=== PATIENT | female | born 1985 | race African-American/Black ===

== ENCOUNTER 2018-07-21 19:33 | Day surgery (SDC) | payer SELFPAY ==
[2018-07-21 20:15] VITALS: BP 137/64; TEMP 98.1; BMI 43.7
[2018-07-21 21:21] LABS: Bilirubin Negative (Negative); Blood, Urine Negative (Negative); Clarity CLEAR (Clear); Glucose, Urine (Dipstick) Negative (Negative); Leukocyte Negative (Negative); Nitrite Negative (Negative); Protein, Urine (Dipstick) Trace mg/dL (Neg-Trace); Specific Gravity, Urine 1.019 (1.002-1.036); pH, Urine 6.5 (5.0-9.0)
--- NOTE | 2018-07-21 22:09 | PDOC.FPROB ---
FMR OB H&P: HPI - History of Present Illness Chief Complaint: Back pain History of Present Illness: This is a 33 yo who presents to L&D with a cc of back pain and cramping she states that the pain has been going on all day and has worsened this evening. She reports ramona vicente contractions in the last 2 weeks. She denies any vaginal bleeding or LOF. She does think she has had an increase in vaginal discharge but denies vaginal discomfort, itching, or dysuria. She reports nausea with one episode of emesis [employer] but states that is normal for her. Pt. had a previous positive chlamydia test and reports she was unaware of these results. She reports being frustrated by this. FMR OB H&P: Current - Care : 5 Para: 4 Gestational age: 34 - OB Labs Blood type: B RH: positive Antibody Screen: negative HIV: negative RPR: negative HepBsAg: negative Rubella: immune Chlamydia: positive (04/10/18 with no documentation of positive test or treatment ) H&H: 11.8/36.3 05/15/18 - Anatomy Survey Anatomy survey: 16.4 weeks, size less than dates FMR OB H&P: History - OB History OB History: 4 previous term vaginal deliveries - Surgical History Sx History: none - Social History Social History: Denies D/A/T - Family History Family History: Noncontributory FMR OB H&P: Medications - Current Home Medications: Medication Instructions Recorded Confirmed Type 21/Iron Fu/Folic Acid 1 tablet PO DAILY 07/21/18 07/21/18 History [ Complete Caplet] Ranitidine HCl 150 mg PO DAILY 07/21/18 07/21/18 History metroNIDAZOLE [Flagyl] 500 mg PO BID #14 tab 07/21/18 Rx Allergies/Adverse Reactions: Allergies Allergy/AdvReac Type Severity Reaction Status Date / Time No Known Allergies Allergy Verified 07/21/18 20:03 FMR OB H&P: ROS - Review of Systems General: denies: fever/chills, weight/appetite/sleep changes Eyes: denies: eye pain, vision changes ENT: denies: nasal congestion, rhinorrhea Cardiovascular: denies: chest pain, palpitation Respiratory: denies: cough, congestion, shortness of breath Gastrointestinal: reports: abdominal pain, nausea, vomiting. denies: bright red blood Genitourinary (Female): denies: incontinence, dysuria, hematuria, vaginal discharge, vaginal pain, vaginal bleeding Musculoskeletal: reports: pain (back) Neurologic: denies: numbness, syncope, seizures Integumentary: denies: itching, rash Psychological: denies: depression, anxiety FMR OB H&P: Vital Signs - Maternal Vital signs: Vital Signs - First Documented Temp Pulse Resp BP 98.1 F 101 H 18 137/64 07/21/18 20:01 07/21/18 20:01 07/21/18 20:01 07/21/18 20:01 - Heart Tones Baseline: 140 (Nonreactive NST) Variability: moderate Acceleration: absent Deceleration: absent FMR OB H&P: Physical Exam - Physical Exam General: NAD, awake, alert and oriented HEENT: normocephalic and atraumatic, PERRLA, EOMI, MMM, conjunctiva clear Chest: non-tender to palpation, no lesions Heart: RRR, normal S1/S2 General: CTAB, no respiratory distress, good air movement, no wheezing Abdomen: soft, gravid, non-tender, bowel sound present Musculoskeletal: pulses present, FROM in all four extremities Neurological: cranial nerves II through XII intact, no focal deficit Skin: no rash, good tugor Psychiatric: intact recent and remote memory, good judgement and insight - Pelvic Exam Vulva: no masses, no lesions, no discharge Cervix: no masses, no lesions, no blood SVE: White discharge, cervix normal in appearance, nonfriable, and closed FMR OB H&P: Results - Labs Lab results: Laboratory Results - last 24 hr 07/21/18 21:09 Urine Color YELLOW Urine Clarity CLEAR Urine pH 6.5 Ur Specific [place] 1.019 Urine Protein Trace Urine Glucose (UA) Negative Urine Ketones Trace H Urine Blood Negative Urine Nitrite Negative Urine Bilirubin Negative Urine Urobilinogen 1.0 Ur Leukocyte Esterase Negative FMR OB H&P: A/P - Problem List (1) Third trimester Current Visit: Yes Status: Acute Code(s): Z34.93 - ENCNTR FOR SUPRVSN OF NORMAL PREG, UNSP, THIRD TRIMESTER Assessment and Plan: This is a at 32 wk by 16.4wk Third trimester -We are obtaining UA, VP3, and GC/Chlamydia and we will adjust our treatment based on these findings. Due to the GC/C test being a send out and her previous positive test, we with treat pt. for chlamydia with azithromycin while she is here. VP3 was positive for BV. We will be treating her with flagyl 500mg BID for 7 days. I discussed this plan with her and let her know we would call her regarding the test results. Pt. was discharged and all questions were addressed at the time of discharge. Discussion: Date/Time: 07/21/18 4373 This H&P was discussed with [] and [] who agree with the above documentation and plan.
[2018-07-21] MEDS ORDERED: Azithromycin 250 MG TAB PO SCH (22:15)
[2018-07-23 19:44] LABS: Chlamydia by PCR DETECTED (NotDetected); GC by PCR Not Detected (NotDetected)
== END 2018-07-21 23:00 | disposition home or self-care (01) ==
LOC: L&D/OP 19:33
PROVIDERS: ATTEND Family Medicine
DX: O99.89 Other specified diseases and conditions complicating pregnancy, childbirth and the puerperium (principal); M54.9 Dorsalgia, unspecified; N89.8 Other specified noninflammatory disorders of vagina; O98.313 Other infections with a predominantly sexual mode of transmission complicating pregnancy, third trimester; A56.02 Chlamydial vulvovaginitis; Z3A.32 32 weeks gestation of pregnancy; Z79.899 Other long term (current) drug therapy
CPT/HCPCS: 51701; 81003; 87480; 87491; 87510; 87591; 87660; 99285

== ENCOUNTER 2018-08-28 02:25 | Day surgery (SDC) | payer SELFPAY ==
[2018-08-28 03:01] VITALS: BMI 43.6
--- NOTE | 2018-08-28 04:15 | PDOC.LDHP ---
Addendum entered and electronically signed by Reginaldo Sandoval DO 08/28/18 06:16: after further review of FHT, will obtain BPP. DC with normal findings. Original Note: Labor and Delivery H&P Chief complaint: contractions HPI: Ms. Robin presents tonight with contractions She reports contractions approx 3-5 mins apart since 2300 on 08/27. She denies LOF, VB, change in VD, headache, SOB, or visual changes. +FM Current gestational age (weeks): 37 (.5) Due date: 09/13/18 Dating criteria: first trimester ultrasound Grav: 5 Para: 4 OB History Details: at term, no complications. elevated pressures in clinic w/o dx of PIH, morbid obesity Current complications: none Abnormal US findings: Yes (size<dates) Past Medical History: anxiety, not taking medications for the past year Current medications: pre-vero vitamins Previous surgical history: none Social history: none - Physical Exam Vital signs reviewed and normal: yes General: NAD Heart: RRR Lungs: nonlabored breathing Abdomen: NTTP Extremeties: trace edema FHT: category 1 (baseline 130), variability present [place] contractions every: 5-7 mins - Vaginal Exam cm dilated: 1 Effacement: 0% Station: -2 - OB Labs Blood type: B RH: positive Antibody Screen: negative HIV: negative RPR: negative HEPSAg: negative 1 hour GCT: negative GBS: negative Urine drug screen: not done Rubella: immune Additional Labs: chlamydia + and treated, HbA1c 5.6 - Assessment labor r/o, possible ramona-vicente - Plan -: - encourage ambulation, PO intake - no cervical change after 2 hours, unlikely onset of labor - DC home with labor precautions - follow up at scheduled [facility] today. <Reginaldo Sandoval - Last Filed: 08/28/18 06:10> <Levon Cronin - Last Filed: 08/29/18 09:18> Allergies/Adverse Reactions: Allergies Allergy/AdvReac Type Severity Reaction Status Date / Time No Known Allergies Allergy Verified 08/28/18 03:02 Attending Addendum - Attending Addendum Date/Time: 08/29/18 0917 I personally evaluated the patient and discussed the management with Dr. Sandoval. I agree with the History, Examination, Assessment and Plan documented above. See additional note by me. <Levon Cronin - Last Filed: 08/29/18 09:18>
--- NOTE | 2018-08-28 07:08 | PDOC.EVN ---
Event Note - Event Note Event Note: FHTs with late appearing decel seen earlier while on monitor. No other abnormalities seen. BPP ordered; returns 8 out of 8 with JOSE of 10+. Plan: DC home with labor precautions.
--- NOTE | 2018-08-28 08:23 | ULT ---
ULTRASOUND BIOPHYSICAL PROFILE: HISTORY: A 33-year-old female with a history of 37 weeks with variable deceleration. FINDINGS: Single viable intrauterine fetus in cephalic presentation. heart rate is 126 b.p.m. Posterior fundal placenta. Amniotic fluid index 10.7 cm. The patient was evaluated over 30 minutes for movement, breathing, and tone. biophysical profile 8/8. IMPRESSION: Normal biophysical profile score 8/8. POS: MACIEL
== END 2018-08-28 07:16 | disposition home or self-care (01) ==
LOC: L&D/OP 02:25
PROVIDERS: ATTEND Obstetrics & Gynecology
DX: O47.03 False labor before 37 completed weeks of gestation, third trimester (principal); O99.343 Other mental disorders complicating pregnancy, third trimester; F41.9 Anxiety disorder, unspecified; O99.213 Obesity complicating pregnancy, third trimester; E66.01 Morbid (severe) obesity due to excess calories; Z3A.37 37 weeks gestation of pregnancy; Z79.899 Other long term (current) drug therapy
CPT/HCPCS: 76819; 99283

== ENCOUNTER 2018-08-30 18:15 | Inpatient (IN) | payer OTHER, SELFPAY ==
[2018-08-30] MEDS ORDERED: HYDROcodone/Acetaminophen 5/325 mg Tablet PO PRN ×2 (18:37)
[2018-08-30] MEDS ORDERED: Methylergonovine 0.2 MG/ML VIAL IM PRN (18:37)
[2018-08-30] MEDS ORDERED: Promethazine HCl 25 MG/ML VIAL IM PRN ×2 (18:37→19:39)
[2018-08-30] MEDS ORDERED: Acetaminophen 500 MG TAB PO PRN (18:37)
[2018-08-30] MEDS ORDERED: Diphenoxylate HCl/Atropine Tablet PO PRN ×2 (18:37)
[2018-08-30] MEDS ORDERED: Ondansetron PF 4 MG/2 ML Vial IVP PRN ×3 (18:37→21:15)
[2018-08-30] MEDS ORDERED: Ibuprofen 800 MG TAB PO PRN (18:37)
[2018-08-30] MEDS ORDERED: NS / Oxytocin 40 units/1000ml 1,000 ML IV PRN (18:37)
[2018-08-30] MEDS ORDERED: Carboprost 250 MCG/ML AMP IM PRN (18:37)
[2018-08-30] MEDS ORDERED: Lidocaine 1% (PF) 30 ML VIAL SC PRN (18:37)
[2018-08-30] MEDS ORDERED: Butorphanol Tartrate 1 MG/ML VIAL SLOW IVP PRN (18:37)
[2018-08-30] MEDS ORDERED: Misoprostol 200 MCG TAB PR PRN (18:37)
[2018-08-30] MEDS ORDERED: Ondansetron ODT 4 MG TAB SL PRN (18:44)
[2018-08-30] MEDS ORDERED: Lactated Ringer's 1,000 ML IV SCH (18:45)
[2018-08-30 18:53] VITALS: BMI 43.4
[2018-08-30 19:08] LABS: Hemoglobin 12.2 g/dL (12.0-16.0); Mean Corpuscular HGB CONC 33.6 g/dL (32.0-36.0); Mean Corpuscular Hemoglobin 27.5 pg (27.0-31.0); Mean Corpuscular Volume 81.8 fL (78.0-98.0); Mean Platelet Volume 7.4 fL (7.4-10.4); Platelet Count 335 thou/uL (130-400); RBC Distribution Width 13.4 % (11.5-14.5); Red Blood Cell (RBC) Count 4.42 mill/uL (4.20-5.40); White Blood Cell (WBC) Count 12.1 thou/uL (4.8-10.8)
--- NOTE | 2018-08-30 19:08 | PDOC.FPROB ---
FMR OB H&P: HPI - History of Present Illness Chief Complaint: Contractions Indentification: 33 year old History of Present Illness: 33 year old at 38 wks by 16.4 wk [place] with DARRICK of 09/13/2018 presents with contractions. She was seen earlier today at [facility] because she went to the restroom this morning and passed a large clot. Patient states that she bled for several hours after she passed the clot. She was also feeling abdominal cramping during that time. At [facility] they checked her cervix and she was dilated 1 cm. They told her to come over to L&D and [facility] since her primary provider is located here. She opted to go home instead, and now she has returned with frequent contractions, nausea, and vomiting. Patient denies vaginal discharge, LoF. Primary Care Physician: Phuong - [facility] FMR OB H&P: Current - Care : 5 Para: 4004 Gestational age: 38.0 wks Due date: 09/13/2018 Dating Criteria: 16.4 wk sono - OB Labs Blood type: B RH: positive Antibody Screen: negative HIV: negative RPR: negative HepBsAg: negative Rubella: immune Gonorrhea: negative Chlamydia: positive (w/ negative KRZYSZTOF) Pap Smear: wnl 1 hour gtt: 132 A1c: 5.4% GBS: negative FMR OB H&P: History - Past Medical History PMH: Morbid obesity - OB History OB History: Morbid obesity Chlamydia in s/p neg KRZYSZTOF - LINUX ARCHITECT History LINUX ARCHITECT History: Hx of chlamydia, treated - Surgical History Sx History: None - Social History Social History: Denies alcohol, tobacco, or drug use - Family History Family History: Insignificant FMR OB H&P: Medications - Current Home Medications: Medication Instructions Recorded Confirmed Type 21/Iron Fu/Folic Acid 1 tablet PO DAILY 08/28/18 08/30/18 History [ Complete Caplet] Promethazine [Phenergan] 25 mg PO Q6HR PRN 08/30/18 08/30/18 History Allergies/Adverse Reactions: Allergies Allergy/AdvReac Type Severity Reaction Status Date / Time No Known Allergies Allergy Verified 08/28/18 03:02 FMR OB H&P: ROS - Review of Systems General: denies: fever/chills, weight/appetite/sleep changes Eyes: denies: vision changes, double vision ENT: denies: nasal congestion, rhinorrhea Cardiovascular: denies: chest pain, edema Respiratory: denies: cough, congestion Gastrointestinal: reports: abdominal pain, nausea, vomiting. denies: diarrhea Genitourinary (Female): reports: vaginal bleeding, contractions. denies: dysuria Musculoskeletal: denies: pain, stiffness Neurologic: denies: syncope, seizures Integumentary: denies: itching, lesions Hematologic/Lymphatic: denies: prolonged or excessive bleeding Psychological: reports: anxiety. denies: depression FMR OB H&P: Vital Signs - Maternal Vital signs: Vital Signs - First Documented Temp Pulse Resp BP 98.6 F 96 18 134/76 08/30/18 18:36 08/30/18 18:36 08/30/18 18:36 08/30/18 18:36 - Heart Tones Baseline: 140 Variability: moderate Acceleration: present Deceleration: variable Category: category 2 [place] contractions every: q4-5 min FMR OB H&P: Physical Exam - Physical Exam General: awake, alert and oriented Deviation from normal: Mild distress, vomiting HEENT: MMM, grossly normal vision, grossly normal hearing Heart: RRR, pulses present General: no respiratory distress, no wheezing Abdomen: soft, gravid, non-tender Musculoskeletal: pulses present Neurological: no tremor, no focal deficit Skin: no rash, capillary refill <2 seconds Lymphatic: no unusual bruising or bleeding, no purpura Psychiatric: intact recent and remote memory, good judgement and insight, normal mood and affect - Pelvic Exam Vulva: normal hair distribution, no masses, no discharge Deviation from normal: blood at introitus SVE: 4/100/-2 at 19:15 Presentation: Cephalic FMR OB H&P: A/P - Problem List (1) Term Current Visit: Yes Status: Acute Code(s): Z34.80 - ENCOUNTER FOR SUPRVSN OF NORMAL , UNSP TRIMESTER (2) History of chlamydia Current Visit: Yes Status: Acute Code(s): Z86.19 - PERSONAL HISTORY OF OTHER INFECTIOUS AND PARASITIC DISEASES (3) Morbid obesity Current Visit: Yes Status: Acute Code(s): E66.01 - MORBID (SEVERE) OBESITY DUE TO EXCESS CALORIES Disposition: 33 year old at 38 wks presents with contractions 1. Term - 38 weeks - In labor: /-2 which is change from earlier today when she was dilated only 1 cm - Admit to L&D for expectant management - Anti-emetics PRN for N/V 2. Labor - Expectant management as above - Will plan to AROM after patient gets epidural - Augmentation if necessary 3. Chlamydia in s/p negative KRZYSZTOF 4. Morbid obesity - Patient was following with M Discussion: Date/Time: 08/30/181903 This H&P was discussed with Dr. Griffiths who agrees with the above documentation and plan. Signature: Yoselin Baca, DO PGY-2
[2018-08-30] MEDS ORDERED: Fentanyl 4 mcg/Bup 0.1% Cadd 100 ML ONE (19:09)
[2018-08-30] MEDS ORDERED: Lidocaine 1.5%/Epinephrine 1:200,000 5 ML AMPUL IJ ONE (19:20)
[2018-08-30] MEDS ORDERED: ePHEDrine/0.9% NaCl/PF SYRINGE 50 mg/10 ml SLOW IVP PRN (19:39)
[2018-08-30] MEDS ORDERED: Naloxone HCl 0.4 mg/ml Vial IVP PRN ×2 (19:39)
[2018-08-30] MEDS ORDERED: Eucerin (Mineral Oil/Petrolatum,White) 30 gm Jar TOP PRN (19:39)
[2018-08-30] MEDS ORDERED: Acetaminophen 325 MG TAB PO PRN (19:39)
[2018-08-30] MEDS ORDERED: diphenhydrAMINE 50 MG/ML VIAL IVP PRN (19:39)
[2018-08-30] MEDS ORDERED: Lactated Ringer's 500 ML IV PRN (19:39)
[2018-08-30] MEDS ORDERED: Fentanyl 4 mcg/Bupivacaine 0.1% Cassette 100 ML EPIDURAL SCH (19:45)
[2018-08-30] MEDS ORDERED: Communication Order-Pharmacy FS SCH (19:45)
--- NOTE | 2018-08-30 19:55 | PDOC.LDPN ---
Labor & Delivery Progress Note - Subjective Subjective: comfortable - Objective Vital signs reviewed and normal: yes General: NAD, breathing through contractions Uterine fundus: non tender SVE: 19:40 Dilation: 5 Effacement: 100% Station: -1 FHT: category 1, variability present [place] contractions every: q2-3 min AROM: clear fluid - Assessment (1) Term Code(s): Z34.80 - ENCOUNTER FOR SUPRVSN OF NORMAL , UNSP TRIMESTER Current Visit: Yes Status: Acute (2) History of chlamydia Code(s): Z86.19 - PERSONAL HISTORY OF OTHER INFECTIOUS AND PARASITIC DISEASES Current Visit: Yes Status: Acute (3) Morbid obesity Code(s): E66.01 - MORBID (SEVERE) OBESITY DUE TO EXCESS CALORIES Current Visit : Yes Status: Acute Plan: continue plan of care
[2018-08-30 20:16] LABS: Syphilis Antibody Nonreactive (Nonreactive); Syphilis Antibody Index 0.03 S/CO (<1.00 Non-Reactive)
[2018-08-30 20:17] LABS: HBSAg Index 0.18 S/CO (0-0.99); Hep B Surf Ag Non-Reactive S/CO (NonReactive)
--- NOTE | 2018-08-30 20:29 | PDOC.OPDEL ---
OB Operative/Delivery Note Delivery Dr/Surgeon: Aye Baca Pre-Delivery Diagnosis: active labor Procedure/Post Delivery Dx: spontaneous vaginal delivery Weeks gestation: 38 Anesthesia: epidural - Findings A Sex: female - 1 min: 9 - 5 min: 9 - Additional Findings/Plan Placenta delivered: spontaneous Repaired Obstetrical Laceration: none Estimated blood loss: 100 mL Compilations/Other Findings: Delivering Physician: Phuong Attending: Aye Procedure: Spontaneous Vaginal Delivery Anesthesia: Epidural EBL: 100 mL Pre-op Diagnosis: 1. Term intrauterine in labor 2. Hx chlamydia in , s/p neg KRZYSZTOF 3. Morbid obesity Post-op Diagnosis: 1. Term intrauterine , delivered 2. same as above Indications: A 33 y/o female presents in active labor Delivery Note: This is 33yo F @ 38 wks who delivered a viable F at 20:05 on 08/30/2018. Following an uneventful antepartum course, a vigorous F was delivered over an intact perineum in the occipitoanterior position. Anterior shoulder and then remainder of the body delivered. No nuchal cord. The head was held down and mouth and nares were bulb suctioned. Cord clamped and cut and cord blood collected. Placenta delivered intact with a 3 vessel cord noted. Fundal massage was performed and the fundus was firm. The cervix and vagina were inspected and found to be free of lacerations. went to nursery in good condition for routine care. Apgars were 9/9 at 1 & 5 minutes, respectively. Patient tolerated delivery well and went to after routine recovery/care. Post delivery plan: routine recovery <Yoselin Baca - Last Filed: 08/30/18 20:35> Attending Addendum - Attending Addendum Date/Time: 08/31/18 0631 I was present and scrubbed for the entire delivery. <Dariela Griffiths - Last Filed: 08/31/18 06:32>
[2018-08-30] MEDS ORDERED: NS / Oxytocin 40 units/1000ml 1,000 ML ONE (21:03)
[2018-08-30] MEDS ORDERED: Bisacodyl 10 MG SUPP PR PRN (21:15)
[2018-08-30] MEDS ORDERED: diphenhydrAMINE 25 MG CAP PO PRN (21:15)
[2018-08-30] MEDS ORDERED: Adacel (T-DAP) 0.5 ML SYRINGE IM ONE (21:15)
[2018-08-30] MEDS ORDERED: Milk Of Magnesia 30 ML UDCUP PO PRN (21:15)
[2018-08-30] MEDS ORDERED: NS / Oxytocin 40 units/1000ml 1,000 ML IV SCH (21:15)
[2018-08-30] MEDS ORDERED: Lanolin Ointment 7 GM TUBE TOP PRN (21:15)
[2018-08-31] MEDS: Ibuprofen 800 MG TAB PO SCH ×3 (00:10→18:17)
[2018-08-31] MEDS: Calcium Carbonate 500 MG ChewTAB PO PRN ×4 (00:11→18:17)
[2018-08-31] MEDS ORDERED: Bupivacaine HCl 0.25%/Epi 0.0005/PF 10 ML VIAL FS ONE (01:11)
[2018-08-31] MEDS: HYDROcodone/Acetaminophen 5/325 mg Tablet PO PRN ×2 (05:19→17:24)
--- NOTE | 2018-08-31 09:18 | PDOC.PP ---
Post Progress Note Post Day #: 1 Subjective: Patient doing well. No significant overnight events. Patient ambulating and tolerating PO. Denies N/V this AM. PO intake tolerated: yes Flatus: yes Ambulation: yes Vital Signs (12 hours) Temp Pulse Resp BP Pulse Ox 08/31/18 07:58 98.2 F 53 L 20 109/55 L 98 08/31/18 04:40 52 L 18 132/69 99 08/31/18 00:20 68 20 127/72 97 08/30/18 23:30 98.6 F 80 20 114/59 L 96 08/30/18 22:15 98.7 F 80 20 120/57 L 96 Weight Weight 118.388 kg - Physical Examination General: NAD Cardiovascular: no m/r/g, RRR Respiratory: clear to auscultation bilaterally, non-labored breathing Abdominal: + bowel sounds, lochia (similar to that of a period), no distention Fundus firm & at: below umbilicus Neurological: no gross focal deficits Psychiatric: A&Ox3, normal affect Result Diagrams: 08/30/18 19:01 Additional Labs: Post Labs Blood Type B POSITIVE 08/30/18 19:15 Hep Bs Antigen Non-Reactive S/CO (NonReactive) 08/30/18 19:15 (1) (spontaneous vaginal delivery) Code(s): O80 - ENCOUNTER FOR FULL-TERM UNCOMPLICATED DELIVERY Status: Acute (2) History of chlamydia Code(s): Z86.19 - PERSONAL HISTORY OF OTHER INFECTIOUS AND PARASITIC DISEASES Status: Acute (3) Morbid obesity Code(s): E66.01 - MORBID (SEVERE) OBESITY DUE TO EXCESS CALORIES Status: Acute (4) Term delivered Code(s): O80 - ENCOUNTER FOR FULL-TERM UNCOMPLICATED DELIVERY Status: Acute - Assessment/Plan 33 year old at 38 wks delivered term female at 20:05 on 08/30 1. Term , delivered - - Routine PP care - Contraception desired: IUD - 2. 3. Morbid obesity - Encourage ambulation 4. Hx of chlamydia in s/p neg KRZYSZTOF Dispo: Stable. Anticipate d/c home tomorrow. Addendum - Attending - Attending Attestation Date/Time: 09/02/18 1744 I personally evaluated the patient and discussed the management with Dr. Baca. I agree with the History, Examination, Assessment and Plan documented above.
[2018-08-31] MEDS: Prenatal Vitamin 1 TAB PO SCH (10:33)
[2018-08-31] MEDS: Ferrous Sulfate 325 MG TAB PO SCH ×2 (10:33→18:14)
[2018-08-31] MEDS: Docusate Calcium (SURFAK) 240 MG CAP PO SCH (10:33)
[2018-08-31 20:55] VITALS: TEMP 97.8
[2018-09-01] MEDS: Ibuprofen 800 MG TAB PO SCH ×2 (02:01→09:37)
[2018-09-01] MEDS: Docusate Calcium (SURFAK) 240 MG CAP PO SCH ×2 (02:02→09:38)
[2018-09-01] MEDS: HYDROcodone/Acetaminophen 5/325 mg Tablet PO PRN (06:57)
[2018-09-01 08:06] VITALS: BP 122/59
[2018-09-01] MEDS: Ferrous Sulfate 325 MG TAB PO SCH (09:31)
[2018-09-01] MEDS: Prenatal Vitamin 1 TAB PO SCH (09:38)
== END 2018-09-01 14:05 | disposition home or self-care (01) | DRG 806 ==
LOC: L&D/OP 18:15 → L&D 18:51 → 3SW 22:18
PROVIDERS: ADMIT Obstetrics & Gynecology; ATTEND Obstetrics & Gynecology
PROC: 10E0XZZ Delivery of Products of Conception, External Approach (ICD-10-PCS; principal; 2018-08-30)
PROC: 10907ZC Drainage of Amniotic Fluid, Therapeutic from Products of Conception, Via Natural or Artificial Opening (ICD-10-PCS; 2018-08-30)
DX: O99.214 Obesity complicating childbirth (principal); Z68.41 Body mass index [BMI] 40.0-44.9, adult; Z37.0 Single live birth; E66.01 Morbid (severe) obesity due to excess calories; Z3A.38 38 weeks gestation of pregnancy; Z86.19 Personal history of other infectious and parasitic diseases; O62.3 Precipitate labor
CPT/HCPCS: 36415; 85027; 86780; 86850; 86900; 86901; 87340; 99285; J2001; J3490

== ENCOUNTER 2019-12-07 09:50 | Emergency (ER) | payer OTHER | END 2019-12-07 10:18 | disposition home or self-care (01) | LOC: ERS 09:50 | DX: J06.9 Acute upper respiratory infection, unspecified (principal); F17.210 Nicotine dependence, cigarettes, uncomplicated; Z79.899 Other long term (current) drug therapy | CPT/HCPCS: 87804; 99283 ==